=== PATIENT | male | born 1945 | race Caucasian/White ===

== ENCOUNTER 2022-02-05 20:00 | Emergency (ER) | payer MEDICARE, OTHER ==
[~2022-02-05 20:00] MED LIST: VENTOLIN HFA IN18 GM INH
[2022-02-05 20:57] LABS: BASOPHIL 0.5 % (0-2); EOSINOPHIL 1.4 % (0-7); HCT 40.8 % (42.0-52.0); HGB 13.7 g/dl (13.2-18.0); LYMPHOCYTE 22.5 % (15-48); MCH 31.9 pg (25.0-31.0); MCHC 33.6 g/dL (32.0-36.0); MCV 95.1 fL (78.0-100.0); MONOCYTE 8.8 % (0-12); MPV 9.8 fL (6.0-9.5); NEUTROPHIL 66.5 % (41-80); NRBC 0; PLT 169 K/uL (150-400); RBC 4.29 M/uL (4.70-6.00); RDW 12.4 % (11.5-14.0); WBC 8.6 K/uL (4.0-10.5)
[2022-02-05 21:17] LABS: ALBUMIN 3.8 g/dL (3.4-5.0); BILIRUBIN - TOTAL 0.6 mg/dL (0.2-1.0); BUN/CREAT RATIO (CALC) 23.3 RATIO; CREATININE 1.29 mg/dL (0.67-1.17); GLOBULIN (CALCULATION) 2.7 g/dL; MAGNESIUM 2.2 mg/dL (1.8-2.4); POTASSIUM 4.4 mmol/L (3.5-5.1); TOTAL PROTEIN 6.5 g/dL (6.4-8.2)
== END 2022-02-06 06:00 | disposition home or self-care (01) ==
LOC: FER 20:00
PROVIDERS: Internal Medicine
DX: R00.1 Bradycardia, unspecified (principal); R42 Dizziness and giddiness; N17.9 Acute kidney failure, unspecified; I10 Essential (primary) hypertension
CPT/HCPCS: 36415; 80053; 83735; 83880; 84484; 85025; 93005; J7040; J7120